=== PATIENT | female | born 1985 | race Caucasian/White ===

== ENCOUNTER → 2023-08-08 08:47 | Outpatient (REF) | payer OTHER, SELFPAY | LOC: PNTC 08:47 | PROVIDERS: ATTENDING PHYSICIAN Obstetrics & Gynecology | DX: O36.60X0 Maternal care for excessive fetal growth, unspecified trimester, not applicable or unspecified (principal) | CPT/HCPCS: 76816 ==

== ENCOUNTER 2023-08-24 09:40 | Inpatient (IN) | payer OTHER, SELFPAY ==
[2023-08-24 09:46] VITALS: BP 125/63; BMI 27.3
[2023-08-24] MEDS: LR 1000 IV ×2 (11:45→15:56)
[2023-08-24 12:09] LABS: % Basophils 0.3 % (0-2); % Eosinophils 0.3 % (0-6); % Immature Granulocytes 1.7 % (0-0.5); % Lymphocytes 15.4 % (20.5-51.1); % Monocytes 5.9 % (1.7-9.3); % Neutrophils 76.4 % (42.2-75.2); Absolute Basophils 0.1 10^3/uL (0-0.2); Absolute Immature Granulocytes 0.3 10^3/uL (0-0.05); Absolute Lymphocytes 2.3 10^3/uL (1.2-3.4); Absolute Monocytes 0.9 10^3/uL (0.1-0.6); Absolute Neutrophils 11.5 10^3/uL (1.4-6.5); Hematocrit 29.9 % (37.0-47.0); Mean Corp Hgb Conc. 33.4 g/dL (33.0-37.0); Mean Corpuscular Hgb 25.1 pg (27.0-31.0); Mean Corpuscular Volume 75.1 fL (81.0-99.0); Mean Platelet Volume 10.6 fL (7.4-10.4); Nucleated Red Blood Cells % 0 %; Platelet Count 353 10^3/uL (130-400); Red Blood Cell Count 3.98 10^6/uL (4.20-5.40); Red Cell Dist. Width 14.7 % (11.5-14.5); White Blood Cell Count 15.1 10^3/uL (4.8-10.8)
[2023-08-24] MEDS: PITOCIN 30 UNITS/NSS 500 ML IV (12:35)
[2023-08-24] MEDS: LR IV (12:45)
[2023-08-24] MEDS: MORPHINE SULFATE 2 MG IV (16:17)
[2023-08-24] MEDS: PHENERGAN 51 MG IV (16:17)
[2023-08-24] MEDS: SUBLIMAZE 100 MCG EPIDURAL (17:33)
[2023-08-24] MEDS: FENTANYL/BUPIVACAINE 100 EPIDURAL (17:34)
[2023-08-24 19:43] LABS: Glucose - Point of Care 86 mg/dl (70-99)
[2023-08-25] MEDS: PITOCIN 30 UNITS/NSS 500 ML IV (00:34)
[2023-08-25] MEDS: TYLENOL 650 MG PO (00:35)
[2023-08-25] MEDS: MOTRIN 600 MG PO ×2 (00:36→18:03)
[2023-08-25 06:09] LABS: Hematocrit 26.9 % (37.0-47.0); Hemoglobin 8.9 g/dL (12.0-16.0)
[2023-08-25] MEDS: TYLENOL PO (08:14)
[2023-08-25] MEDS: PRENATAL PLUS 1 TABLET PO (08:14)
[2023-08-25] MEDS: FEOSOL 325 MG PO (08:14)
[2023-08-25] MEDS: SENOKOT-S 1 TABLET PO (08:14)
[2023-08-25] MEDS: MOTRIN PO (08:15)
[2023-08-26] MEDS: PRENATAL PLUS 1 TABLET PO (08:30)
[2023-08-26] MEDS: FEOSOL 325 MG PO (08:30)
[2023-08-26] MEDS: RHOGAM 300 MCG IM (09:23)
--- NOTE | 2023-08-26 13:01 | CM ---
Chart reviewed and CM met with new Mom Diamante
Mom confirmed address, lives with her parents and boyfriend
Mom named her baby Reed
Mom plans to breast feed her son and has a breast pump
Mom reports she has all supples for her son including car seat
Pharmacy General Manager will be Celina Harp and mom has scheduled appt for 08/27 at 1200
[2023-08-27 14:49] LABS: Syphilis/T. pallidum Ab Reflex Negative (Negative)
== END 2023-08-26 12:48 | disposition home or self-care (01) | DRG 807 ==
LOC: LDRP 09:40
PROVIDERS: Obstetrics & Gynecology; ADMITTING PHYSICIAN Obstetrics & Gynecology
PROC: 0HQ9XZZ Repair Perineum Skin, External Approach (ICD-10-PCS; 2023-08-25)
PROC: 10E0XZZ Delivery of Products of Conception, External Approach (ICD-10-PCS; 2023-08-25)
DX: O70.0 First degree perineal laceration during delivery (principal); Z37.0 Single live birth; O69.81X0 Labor and delivery complicated by cord around neck, without compression, not applicable or unspecified; Z3A.39 39 weeks gestation of pregnancy
CPT/HCPCS: 82962; 85014; 85018; 85025; 85461; 86780; 86850; 86870; 86900; 86901; J2790